=== PATIENT | female | born 1985 | race Caucasian/White ===

== ENCOUNTER 2018-12-23 12:08 | Emergency (ER) | payer OTHER ==
[2018-12-23 12:15] VITALS: BP 142/84
--- NOTE | 2018-12-23 13:36 | ED Physician Documentation ---
PD HPI HEENT - Stated complaint Stated Complaint: COUGH, MUCUS, TIGHT THROAT - Chief complaint Chief Complaint: Heent - History obtained from History obtained from: Patient - History of Present Illness Timing - onset: How many weeks ago (2) Timing - duration: Weeks (2) Timing - details: Still present Location: Sinuses, Throat Associated symptoms: Congestion, Rhinorrhea. No: Fever Recently seen: Not recently seen - Additional information Additional information: Is a 33-year-old woman who presents with complaints that she is been getting sick for the past 2 weeks coughing up dark green phlegm for the past week and coughing to the point that she is actually vomiting. She has not seen any blood in it. She has developed a sore throat with all the coughing and she is blowing thick green mucus out of her nose. She does have some sinus pressure and a bitemporal headache. She is a smoker. 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 She had a history of bronchitis a year ago and was treated with antibiotics. Review of Systems Constitutional: denies: Fever Ears: denies: Ear pain Nose: reports: Rhinorrhea / runny nose, Congestion Throat: reports: Sore throat Respiratory: reports: Dyspnea, Cough GI: reports: Vomiting PD PAST MEDICAL HISTORY - Present Medications Home Medications: Ambulatory Orders Medication Instructions Recorded Confirmed Azithromycin [Zithromax] 0 mg PO DAILY #6 tablet 12/23/18 Benzonatate [Tessalon Perle] 100 - 200 mg PO TID PRN #30 capsule 12/23/18 - Allergies Allergies/Adverse Reactions: Allergies Allergy/AdvReac Type Severity Reaction Status Date / Time No Known Drug Allergies Allergy Verified 12/23/18 12:14 PD ED PE NORMAL - Vitals Vital signs reviewed: Yes - General General: Alert and oriented X 3, No acute distress, Well developed/nourished - HEENT HEENT: Atraumatic, PERRL, EOMI, Ears normal, Moist mucous membranes, Pharynx benign - Neck Neck: Supple, no meningeal sign, No adenopathy, Thyroid normal - Cardiac Cardiac: RRR, No murmur, Strong equal pulses - Respiratory Respiratory: No respiratory distress, Clear bilaterally - Abdomen Abdomen: Normal bowel sounds, Soft, Non tender - Derm Derm: Normal color, Warm and dry, No rash - Extremities Extremities: No edema - Neuro Neuro: Alert and oriented X 3, parts inspector 2-12 intact, No motor deficit, No sensory deficit, Normal speech - Psych Psych: Normal mood, Normal affect Results - Vitals Vitals: Vital Signs - 24 hr 12/23/18 12:13 Temperature 37.0 C Heart Rate 86 Respiratory 16 Rate Blood Pressure 142/84 H O2 Saturation 99 Oxygen O2 Source Room air PD MEDICAL DECISION MAKING - ED course Complexity details: d/w patient ED course: Lungs are clear but the patient is a smoker bringing up dark green phlegm for a week. I elected to cover with a Zithromax Z-CRISPIN and she is placed on Tessalon Perles to help with the cough. Follow-up with her primary care provider if not improving. Departure - Departure Disposition: 01 Home, Self Care Clinical Impression: Bronchitis Condition: Good Instructions: ED Upper Resp Infec Abx Tx Follow-Up: TIM Mckeon [Provider Group] Prescriptions: Azithromycin [Zithromax] 0 mg PO DAILY #6 tablet Benzonatate [Tessalon Perle] 100 - 200 mg PO TID PRN #30 capsule PRN Reason: Cough Comments: Take the Zithromax as prescribed. Tessalon if needed for cough but do not bite or chew the capsule. Follow-up with your primary care provider if your symptoms are not improving. Stop smoking.
== END 2018-12-23 14:18 | disposition home or self-care (01) ==
LOC: ED 12:08
DX: J40 Bronchitis, not specified as acute or chronic (principal); F17.200 Nicotine dependence, unspecified, uncomplicated
CPT/HCPCS: 99282; 99284